=== PATIENT | male | born 1975 | race Caucasian/White ===

== ENCOUNTER 2020-12-10 17:28 | Emergency (ER) | payer OTHER ==
[~2020-12-10] VITALS: Ht 182.9 cm; Wt 122.5 kg
--- NOTE | ~2020-12-10 | EMS ---
[address] [address] EMS Patient Care Report Name: KENYON MATSON MIGUEL Room #: REG LUKE Joseph#: [id number] Admission: 12/10/20 Attend Phys: Discharge: Date of : 73 Report #: [id number] THIS REPORT FOR: //name// Report Transmitted: 12/11/2020 01:12 EMS Care [place] Incident [id number] @ 12/10/2020 16:43 [address] [id number] Patient Kenyon Matson Male, 45 Years 1975 Patient Address [address] [place], [place] [id number] Patient History Inflammatory Liver Disease,Type 2 diabetes mellitus,Anxiety disorder, unspecified,Schizoaffective Disorder,Bipolar disorder, unspecified,Dysthymic disorder,Post-traumatic stress disorder, unspecified,Other, Patient Allergies , Patient Medications Invega, Wellbutrin, Metformin, Chief Complaint Palpitations Disposition Transported No Lights/[place] Dispatch Reason Chest Pain (Non-Traumatic) Transported To [facility] Narrative [facility] dispatched to the stated location on a rapid heart rate. Upon arrival, EMS discovered a male patient standing on the side of the road speaking with [facility] [address] [place] [address] EMS Patient Care Report Name: KENYON MATSON II Room #: EULALIA Joseph#: [id number] Admission: 12/10/20 Attend Phys: Discharge: Date of : 73 Report #: [id number] [place] [facility] ([facility]) personnel. The patient appeared to be awake and alert to his surroundings and tracking EMS as they approached. A primary exam revealed a patent airway, spontaneous breathing, and self maintained circulation. [facility]D states that that patient feels like his heart is "beating out of his chest". The patient denies having any cardiac history and denies any recent sickness. [facility]D was obtaining a blood glucose on EMS arrival. Once the blood glucose was obtained, EMS assisted the patient into a seated position on the cot. He was secured with all necessary straps, moved to the ambulance, loaded, and secured without incident. Inside the ambulance, patient vital signs were taken and past medical history recorded. The patient was placed on the property assessment monitor and a 12 lead ecg was obtained. Multiple 12 leads attempted due to the patient having tremors and being unable to obtain a clear reading. IV access attempted but unsuccessful. Upon obtaining patient history, it is revealed that the patient is a paranoid schizophrenic that had some of his psychiatric medications d/c last week. He states that since stopping his meds last week, the voices in his head have gotten worse and are telling him to kill himself. Patient admits to increased paranoia recently. The patient was continuously monitored while en route to the destination facility and remained calm, cooperative, and stable for the duration of the trip. Upon arrival at the destination facility, the patient was unloaded from the ambulance and taken inside the ED to triage. He was assisted into a wheelchair and moved into a triage room with a nurse. Verbal report was given to the receiving nurse and patient care was turned over with no significant change in the patient's condition. All required signatures were obtained and witnessed by EMS. [facility] cleared the call and returned to service. END. Initial Vitals @17:15Pain: 4, @16:50Pain: 010, @16:52SpO2: 97, @17:00SpO2: 97, @17:03SpO2: 98, @17:09SpO2: 97, @17:16SpO2: 96, @16:55 @16:56 @17:18 @16:52P: 118,R: 18,BP: 186/103, @17:09P: 100,R: 18,BP: 202/90, @16:52GCS: 15, @17:09GCS: 15, @16:50 @16:50Glucose: 121, Assessments @16:50MENTAL:SKIN:HEENT:LUNG [facility] [address] [place] [address] EMS Patient Care Report Name: YOANAKENYON Mandi Room #: REG EnidGeovani.#: [id number] Admission: 12/10/20 Attend Phys: Discharge: Date of : 73 Report #: [id number] SOUNDS:ABDOMEN:PELVIS//GI:EXTREMITIES:PULSE:NEURO: Impression Angina pectoris Procedures @16:58 IV Therapy - cc () Site: Antecubital-Right Response: UnchangedFailed @16:55 12-Lead ECG Response: UnchangedSucceeded @16:56 12-Lead ECG Response: UnchangedSucceeded @17:18 12-Lead ECG Response: UnchangedSucceeded Timeline 09:00,Call Received 16:42,Dispatch Notified 16:42,Psap Call 16:43,Dispatched 16:43,En Route 16:49,On Scene 16:50,At Patient 16:50,BP: / M,PULSE: ,RR: R,SPO2: Ox,ETCO2: ,BG: ,PAIN: 0,GCS: , 16:50,BP: / M,PULSE: ,RR: R,SPO2: Ox,ETCO2: ,BG: ,PAIN: ,GCS: , 16:50,BP: / M,PULSE: ,RR: R,SPO2: Ox,ETCO2: ,B,PAIN: ,GCS: , 16:52,BP: / M,PULSE: ,RR: R,SPO2: 97 Ox,ETCO2: ,BG: ,PAIN: ,GCS: , 16:52,BP: 186/103 M,PULSE: 118,RR: 18 R,SPO2: Ox,ETCO2: ,BG: ,PAIN: ,GCS: , 16:52,BP: / M,PULSE: ,RR: R,SPO2: Ox,ETCO2: ,BG: ,PAIN: ,GCS: 15, 16:55,12-Lead ECG,Response: UnchangedSucceeded, 16:55,BP: / M,PULSE: ,RR: R,SPO2: Ox,ETCO2: ,BG: ,PAIN: ,GCS: , 16:56,12-Lead ECG,Response: UnchangedSucceeded, 16:56,BP: / M,PULSE: ,RR: R,SPO2: Ox,ETCO2: ,BG: ,PAIN: ,GCS: , 16:58,IV Therapy - cc Site: Antecubital-Right,Response: UnchangedFailed, 17:00,BP: / M,PULSE: ,RR: R,SPO2: 97 Ox,ETCO2: ,BG: ,PAIN: ,GCS: , 17:01,Depart Scene 17:03,BP: / M,PULSE: ,RR: R,SPO2: 98 Ox,ETCO2: ,BG: ,PAIN: ,GCS: , 17:09,BP: / M,PULSE: ,RR: R,SPO2: 97 Ox,ETCO2: ,BG: ,PAIN: ,GCS: , 17:09,BP: 202/90 M,PULSE: 100,RR: 18 R,SPO2: Ox,ETCO2: ,BG: ,PAIN: ,GCS: , 17:09,BP: / M,PULSE: ,RR: R,SPO2: Ox,ETCO2: ,BG: ,PAIN: ,GCS: 15, 17:15,BP: / M,PULSE: ,RR: R,SPO2: Ox,ETCO2: ,BG: ,PAIN: 4,GCS: , 17:16,BP: / M,PULSE: ,RR: R,SPO2: 96 Ox,ETCO2: ,BG: ,PAIN: ,GCS: , 17:18,12-Lead ECG,Response: UnchangedSucceeded, 17:18,BP: / M,PULSE: ,RR: R,SPO2: Ox,ETCO2: ,BG: ,PAIN: ,GCS: , 17:24,At Destination 17:46,Call Closed Disclaimer v1.1 Copyright 2020 [employer] [address] [address] EMS Patient Care Report Name: KENYON MATSON Room #: REG LUKE Joseph#: [id number] Admission: 12/10/20 Attend Phys: Discharge: Date of : 73 Report #: [id number] This EMS Care Summary contains data elements from the applicable legal record (which may be displayed differently). It is designed to provide pertinent information for the following purposes: continuity of care, clinical quality, and state data reporting. The complete legal record is available to ED staff and administrators of the receiving hospital in [facility]'s Patient Tracker. All data is provided "as is."
[2020-12-10 18:02] LABS: HEMATOCRIT 41.7 % (42.0-52.0); HEMOGLOBIN 14.1 gm/dL (14.0-18.0); MCH 31.6 pg (26.0-34.0); MCHC 33.8 g/dL (28.0-37.0); MCV 93.6 fL (80.0-100.0); RBC 4.46 mil/uL (4.50-6.00); RDW 14.8 % (10.5-14.5); WBC 11.8 thou/uL (4.0-11.0)
[2020-12-10 18:24] LABS: ANION GAP 13 mmol/L (7-16); BUN 6 mg/dL (7-18); CALCIUM 8.5 mg/dL (8.5-10.1); CHLORIDE 100 mmol/L (98-107); CO2 22 mmol/L (21-32); CREATININE 0.8 mg/dL (0.7-1.3); GLUCOSE 131 mg/dL (74-106); POTASSIUM 3.4 mmol/L (3.5-5.1); SODIUM 135 mmol/L (136-145)
[2020-12-10 18:30] LABS: SGOT 54 U/L (15-37); SGPT 83 U/L (30-65); TOTAL BILIRUBIN 0.7 mg/dL (0.2-1.0); TOTAL PROTEIN 7.7 g/dL (6.4-8.2)
[2020-12-10 18:54] LABS: SALICYLATE 3.1 mg/dL (2.8-20.0)
[2020-12-10 20:02] LABS: AMP/METHAMP Negative (Negative); BARBITURATES Negative (Negative); BENZODIAZEPINES Negative (Negative); COCAINE Negative (Negative); METHADONE Negative (Negative); OPIATES Negative (Negative); PCP Negative (Negative)
[2020-12-11 09:04] VITALS: BP 123/77
== END 2020-12-11 09:06 ==
LOC: ER 17:28
PROVIDERS: Nurse Practitioner Family
DX: F20.9 Schizophrenia, unspecified (principal); Z20.822 Contact with and (suspected) exposure to COVID-19; F28 Other psychotic disorder not due to a substance or known physiological condition; F29 Unspecified psychosis not due to a substance or known physiological condition; Z88.6 Allergy status to analgesic agent; Z88.9 Allergy status to unspecified drugs, medicaments and biological substances; Z88.5 Allergy status to narcotic agent

== ENCOUNTER 2020-12-29 21:53 | Inpatient (IN) | payer OTHER ==
[~2020-12-29] VITALS: Ht 175.3 cm; Wt 132.9 kg
[2020-12-29] MEDS ORDERED: INVEGA6 MG PO (22:09)
[2020-12-29 22:26] LABS: HEMATOCRIT 41.3 % (42.0-52.0); HEMOGLOBIN 13.7 gm/dL (14.0-18.0); MCH 31.7 pg (26.0-34.0); MCHC 33.3 g/dL (28.0-37.0); MCV 95.3 fL (80.0-100.0); RBC 4.33 mil/uL (4.50-6.00); RDW 14.1 % (10.5-14.5); WBC 7.9 thou/uL (4.0-11.0)
[2020-12-29 22:38] LABS: CALCIUM 8.4 mg/dL (8.5-10.1); POTASSIUM 3.3 mmol/L (3.5-5.1)
[2020-12-29 22:47] LABS: ALBUMIN 3.4 g/dL (3.4-5.0); MAGNESIUM 1.9 mg/dL (1.8-2.4); PHOSPHORUS 3.5 mg/dL (2.6-4.7); SALICYLATE 3.3 mg/dL (2.8-20.0); TOTAL BILIRUBIN 0.5 mg/dL (0.2-1.0)
[2020-12-30] VITALS (69 sets, daily range): BP systolic 92–123; BP diastolic 49–84
[2020-12-30 00:06] LABS: BE(vivo) -4.9 mmol/L (-2 to +3); HCO3 20.2 mmol/L (22.0-26.0); PCO2 37.7 mmHg (35.0-45.0); PO2 281.8 mmHg (80.0-100.0); pH 7.347 (7.360-7.450); sO2 99.6 % (92.0-98.0)
[2020-12-30 00:54] LABS: URINE BILIRUBIN NEGATIVE (Negative); URINE BLOOD NEGATIVE (Negative); URINE CLARITY CLEAR; URINE COLOR YELLOW; URINE GLUCOSE-RANDOM* NEGATIVE (Negative); URINE KETONES NEGATIVE (Negative); URINE LEUKOCYTES-REFLEX NEGATIVE (Negative); URINE NITRITE-REFLEX NEGATIVE (Negative); URINE PROTEIN (DIPSTICK) NEGATIVE (Negative); URINE SPECIFIC GRAVITY >= 1.030 (1.005-1.035); URINE UROBILINOGEN 0.2 E.U./dl (0.2-1.0)
[2020-12-30 01:03] LABS: AMP/METHAMP Negative (Negative); BARBITURATES Negative (Negative); BENZODIAZEPINES POSITIVE (Negative); COCAINE Negative (Negative); METHADONE Negative (Negative); OPIATES Negative (Negative); PCP Negative (Negative)
--- NOTE | 2020-12-30 04:06 | NUR ---
PT ARRIVED FROM ED AT 0155 ACCOMPANIED BY ED RN ASHLEIGH AND RT. PT MODERATELY SEDATED ON VERSED AND FENTANYL ON ARRIVAL. AFFIDAVITS SIGNED PER ED PHYSICIAN. PT'S HOME MEDS SENT TO PHARMACY. PT VALUABLES SENT TO SECURITY FOR STORAGE. PT VSS. ROOM STRIPPED PER SI PRECAUTIONS. NO SITTER NEEDED PER NEWCOMER HOSTESS DUE TO PT SEDATED, INTUBATED, AND RESTRAINED. WILL CONTINUE TO MONITOR.
--- NOTE | 2020-12-30 10:15 | EKG ---
[address] [place] [address] ELECTROCARDIOGRAM REPORT Name: CARA LEES II Room #: 242-P ADM IN M.R.#: [id number] Admission: 12/29/20 Attend Phys: Stas Claudio MD Discharge: Date of : 73 Report #: [id number] [facility] ED Test Date: 2020-12-29 Test Time: 22:05:04 Pat Name: CARA LEES Department: Room: 242 Gender: M Mortgage Underwriter: SREEKANTH : 1975 Requested By: Tyler Lamas Order Number: [id number] MD: Kranthi Dodson Measurements Intervals [place] Rate: 86 P: 54 SC: 128 QRS: 28 QRSD: 96 T: 48 QT: 363 QTc: 434 Interpretive Statements Sinus rhythm Borderline low voltage, extremity leads Baseline wander in lead(s) I,II,aVR,aVF Compared to ECG 06/23/2008 22:05:31 Sinus tachycardia no longer present Electronically Signed On 12-30-2020 10:14:58 TEST DEPARTMENT HELPER by Kranthi Dodson [email or web address] <ELECTRONICALLY SIGNED> By: Kranthi Dodson MD 12/30/20 1014 04 04 Kranthi Dodson MD /LAZARA
--- NOTE | 2020-12-30 15:57 | NUR ---
PT FOUND SEDATED ON VERSED AND FENTANYL. PT + GAG AND WITHRAWAL TO PAINFUL STIMULI, LUNG CLEAR/DIMISHED, ETT ADVANCE 3CM F/U BY XRAY PER MD LEMUS ORDER. MOUTH CARE DONE. CLRT.
[2020-12-31] VITALS (47 sets, daily range): BP systolic 93–158; BP diastolic 42–96
[2020-12-31 04:59] LABS: HEMATOCRIT 37.9 % (42.0-52.0); HEMOGLOBIN 12.7 gm/dL (14.0-18.0); MCH 32.1 pg (26.0-34.0); MCHC 33.6 g/dL (28.0-37.0); MCV 95.5 fL (80.0-100.0); RBC 3.97 mil/uL (4.50-6.00); RDW 14.2 % (10.5-14.5); WBC 6.9 thou/uL (4.0-11.0)
[2020-12-31 05:58] LABS: CALCIUM 7.8 mg/dL (8.5-10.1); CREATININE 0.7 mg/dL (0.7-1.3); POTASSIUM 3.9 mmol/L (3.5-5.1)
--- NOTE | 2020-12-31 06:26 | NUR ---
PATIENT INTUBATED AND SEDATED WITH VERSED AND FENTANYL FOR VENT MGMT. FOLLOWS COMMANDS, CAN WRITE QUESTIONS, NODS HEAD YES/NO, AND MOVES ALL EXTREMITIES WELL. PATIENT WROTE ON WHITEBOARD TWICE THAT HE WANTS TO EAT AND DRINK. EXPLAINED BOTH TIMES THAT PATIENT CANNOT EAT, NOR DRINK WHILE INTUBATED AND SEDATED. PATIENT DID COMPLAIN OF PAIN ONE TIME AT BEGINNING SHIFT - REPOSITIONED AND TITRATED UP PAIN MED GTT FOR COMFORT. SR ON THE MONITOR WITH SBP 90s AND ABOVE AND MAP ABOVE 65 FOR ENTIRE SHIFT. EDEMA TO BILATERAL HANDS 2+. PATIENT FI02 TITRATED DOWN FROM 35 TO 30% AT BEGINNING OF SHIFT. PATIENT REQUESTED TO BE SUCTIONED MULTIPLE TIMES THROUGHOUT SHIFT. THICK WHITE SECRETIONS NOTED ON IN-LINE SUCTION. OGT TO LIS. PATIENT NPO. NO BM ON SHIFT. LENZ IN PLACE WITH DARK YELLOW URINE AND 810 ML TOTAL OUTPUT FOR SHIFT. SKIN INTACT WITH 2 PIVs. BG CHECKED 2 TIMES LBG 103 AT APPROX 0600. NO SSI. PT HAS H/O OF TYPE II DM.
[2020-12-31 11:02] LABS: BE(vivo) -0.1 mmol/L (-2 to +3); HCO3 24.5 mmol/L (22.0-26.0); PCO2 39.7 mmHg (35.0-45.0); PO2 68.1 mmHg (80.0-100.0); pH 7.408 (7.360-7.450); sO2 93.8 % (92.0-98.0)
--- NOTE | 2020-12-31 11:08 | NUR ---
PT FOUND EASILY AROUSABLE AND ABLE TO MAKE NEEDS KNOWN. PT RESTLESS AND EXPRESS HE WANT THE TUBE OUT. PT FOUND W/ VERSED & FENTANYL DRIP INFUSING. PLAN IS WEAN OFF AND EXTUBATE PT TOLERATED. ABG SENT BY RESP THERAPIST AND SEDATION HELD. PT IS CALM AND USING THE REMOTE AND WATCHING TV. LENZ W/ CLEAR YELLOW URINE. OGT TO LWS. PT TOLERATING CPAP AND WEANING TRIALS.
--- NOTE | 2020-12-31 13:29 | NUR ---
1312 PT EXTUBATED PER MD LEMUS VERBAL ORDER. RESP THERAPIST SHAREE REMOVED ETT AND PLACED PT ON 40 % HUMIDIFIED OXYGEN. PT CALM A0X3, NOT PULLING AT ANYTHING RESTRAINT REMOVED. 1:1 STARTED REMOVED. REMOVED ALL SHARP AND OBJECT OUT OF THE ROOM THAT PATIENT CAN USE TO HURT SELF. SPOKE TO POURER BULL LADLE ABOUT THE NEED FOR A SITTER AFTER 3PM .
--- NOTE | 2020-12-31 14:26 | NUR ---
PT EXTUBATED BREATHING REGULARLY ON 2LNC SAT 96%, TOLERATED ICE CHIPS AND ADVANCE TO CLEAR AND WILL HAVE HEART HEALTHY DIABETIC DIET PER KO
--- NOTE | 2020-12-31 19:05 | NUR ---
COMMUNICATED WITH DR. CHATMAN VIA [employer] TEXT: NOTED H/O OF TYPE II DM WITH METFORMIN TO CONTROL. ORDERS FOR GIVEN FOR ACHS ACCUCHECK AND LOW DOSE SSI.
[2021-01-01] VITALS (7 sets, daily range): BP systolic 108–135; BP diastolic 67–89
--- NOTE | 2021-01-01 07:53 | NUR ---
PATIENT ALERT/ORIENTED, VERY PLEASANT, AND COOPERATIVE, AFEBRILE, AND MOVES ALL EXTREMITIES WELL. SLEPT MOST OF THE SHIFT. SR WITH HR 60-70s. 2L N/C FOR COMFORTS. PATIENT CHANGED TO ACHS ACCUCHECK WITH LD SSI PER HOSPITALIST. LENZ OUTPUT YELLOW AND CLR WITH TOTAL OUTPUT 1400 ML FOR SHIFT. PATIENT SALINE LOCKED. PSYCH CONSULT CALLED THIS MORNING.
--- NOTE | 2021-01-01 16:54 | NUR ---
Pt transferred to unit from ICU. Sitter in the room.
--- NOTE | 2021-01-02 07:31 | NUR ---
PT AMBULATING TO BATHROOM INDEPENDENTLY AND IS TOLERATING FAIR. DENIES PAIN. SITTER PRESENT AT BEDSIDE. FREQUENT OBSERVATION.
[2021-01-02 08:04] VITALS: BP 124/75
[2021-01-02 17:05] VITALS: BP 107/62
--- NOTE | 2021-01-02 18:36 | NUR ---
PT ASSESSED AT START OF SHIFT. ALERT, AND CALM. DOES STATES HE IS DEPRESSED AND STILL DOES NOT WANT TO LIVE. C/O SOME INNER ANXIETY THIS AFTERNOON AND WAS GIVEN XANAX W/ SOME RELIEF. TOOK SHOWER AND SAT UP IN THE CHAIR AND WATCHED A COMEDY ON THE TV.
--- NOTE | 2021-01-03 03:11 | NUR ---
PT AMBULATING TO BATHROOM INDEPENDENTLY AND IS TOLERATING FAIR. DENIES PAIN. LORAZEPAM GIVEN FOR ANXIETY. SITTER AT BEDSIDE. RESTING COMFORTABLY. NO NEEDS VOICED. CALL LIGHT WITHIN REACH. FREQUENT OBSERVATION.
--- NOTE | 2021-01-03 08:47 | NUR ---
ASSUMED PT CARE THIS AM. PT IS CALM AND COOPERATIVE. ASSESS MOOD THIS AM. STILL HAVE THOUGHT OF HURTING SELF BUT NO SPECIFIC PLANS. PT DENIES PAIN. PT IS CURRENTLY EATING BREAKFAST. PT HAS SITTER. PT IS ACCUCHECK ACHS. PT IS ON ROOM AIR. WILL CONTINUE TO MONITOR PT. FOLLOW POC.
[2021-01-03 09:16] VITALS: BP 130/70
--- NOTE | 2021-01-03 12:08 | NUR ---
45 year old male who presents to the ED with recent ingestion of a number 30 (100 mg tablets) of Seroquel with intent to end his own life. The reported ingestion time is 2144 per Wilian. It is reported from the ER physician that the patient received his Invega injection today and then went to fill his Seroquel shortly afterwards. He has a longstanding history of psychosis/hallucinations with schizophrenia and multiple psychiatric admissions dating all the way back to 2007. He was most recently admitted at [facility] inpatient psychiatric treatment. He also been to [facility] inpatient psych in the past. Had outpatient at [facility] in the past. HX of Hepatitis C, previous methamphetamine abuse, narcolepsy, kidney stones, schizophrenia, suicidal ideation, suicide attempt, and hallucinations. Intubated, no arrhythmias, was on bicarb drip, now extubated, transferred out of icu, medically stable for transfer to in pt psych. Cm visited with him at bedside, he denies and thoughts or plan of hurting himself or other. Has a sitter at bedside. Prior to hospital he was staying at the [facility]. Reports he was independent, be been to inpt psych treatment in the past and does not feel he needs that, he can just go home per wilian. Will cont following as needed for dc needs.
[2021-01-03 16:00] VITALS: BP 112/79
[2021-01-03 19:34] VITALS: BP 120/73
--- NOTE | 2021-01-04 02:13 | NUR ---
PT IS A&OX4 WITH ANXIETY, IS ABLE TO COMMUNICATE WANTS AND NEEDS TO STAFF MEMBERS APPROPRIATELY. PT CONTINUES ON 1:1 OBSERVATION DUE TO ATTEMPTED OVERDOSE AND CONTINUED SI, THOUGH DOES NOT HAVE AN ACTIVE PLAN. PT IS AMBULATORY AND UP TO BR WITH SBA. MEDICATED X1 FOR ANXIETY AND SLEEP AID WITH GOOD RESULTS. PT IS RESTING IN BED WITH EYES CLOSED, RESPIRATIONS EVEN AND UNLABORED AT THIS TIME. WILL CONTINUE TO OBSERVE FOR CHANGES.
[2021-01-04 05:45] VITALS: BP 117/48
[2021-01-04 07:39] VITALS: BP 127/64
--- NOTE | 2021-01-04 09:44 | NUR ---
visited with wilian at bedside, still has sitter. Plan to dc today to [facility] [address] [facility]. Medication to be sent to [facility] to vouch for medication. [facility] to be set [facility] for dc transportation today.
[2021-01-04] MEDS ORDERED: ZYPREXA 5 MG TAB5 M1 PO (12:34)
[2021-01-04] MEDS ORDERED: LEXAPRO 10 MG T10 M1 PO (12:34)
[2021-01-04] MEDS ORDERED: TRAZODONE HCL100 MG PO (12:34)
[2021-01-04 13:37] VITALS: BP 127/64
[2021-01-04] MEDS ORDERED: INVEGA TRI546 MG/1.7 IM (14:18)
[2021-01-04] MEDS ORDERED: SEROQUEL 100 M100 M1 PO (14:19)
--- NOTE | 2021-01-04 17:22 | NUR ---
NO SUICIDE IDEATION. DC TO HOME.
== END 2021-01-04 18:45 | disposition home or self-care (01) | DRG 917 ==
LOC: ER 21:53 → 4S 23:53 → ICU 23:53 → EROBS 23:53 → ER 12-30 00:10 → ICU 12-30 01:47 → 4S 01-01 16:10
PROVIDERS: Emergency Medicine; Nurse Practitioner Family; ADMIT Internal Medicine; ATTEND Internal Medicine
PROC: 5A1945Z Respiratory Ventilation, 24-96 Consecutive Hours (ICD-10-PCS; principal; 2020-12-30)
PROC: 0BH17EZ Insertion of Endotracheal Airway into Trachea, Via Natural or Artificial Opening (ICD-10-PCS; principal; 2020-12-30)
DX: T43.592A Poisoning by other antipsychotics and neuroleptics, intentional self-harm, initial encounter (principal); J96.01 Acute respiratory failure with hypoxia; G92.8 Other toxic encephalopathy; Z68.41 Body mass index [BMI] 40.0-44.9, adult; T14.91XA Suicide attempt, initial encounter; G47.419 Narcolepsy without cataplexy; E11.9 Type 2 diabetes mellitus without complications; Z20.822 Contact with and (suspected) exposure to COVID-19; F17.210 Nicotine dependence, cigarettes, uncomplicated; F15.90 Other stimulant use, unspecified, uncomplicated; F25.9 Schizoaffective disorder, unspecified; G47.33 Obstructive sleep apnea (adult) (pediatric); E66.01 Morbid (severe) obesity due to excess calories; Z90.49 Acquired absence of other specified parts of digestive tract; Z86.19 Personal history of other infectious and parasitic diseases; Z87.442 Personal history of urinary calculi; Z88.6 Allergy status to analgesic agent; Z88.8 Allergy status to other drugs, medicaments and biological substances; Y92.89 Other specified places as the place of occurrence of the external cause; Z79.899 Other long term (current) drug therapy; Z23 Encounter for immunization; Y93.89 Activity, other specified; Y99.8 Other external cause status
CPT/HCPCS: 10078; 10195